=== PATIENT | female | born 1995 | race Caucasian/White ===

== ENCOUNTER 2017-02-10 09:28 | Emergency (ER) | payer BC ==
[~2017-02-10] VITALS: Ht 167.6 cm; Wt 63.0 kg
[2017-02-10 09:30] VITALS: BP 113/77
== END 2017-02-10 11:27 | disposition home or self-care (01) ==
LOC: ED 09:28
DX: S61.412A Laceration without foreign body of left hand, initial encounter (principal); J45.909 Unspecified asthma, uncomplicated; W25.XXXA Contact with sharp glass, initial encounter; Y93.89 Activity, other specified; Y99.8 Other external cause status; Y92.89 Other specified places as the place of occurrence of the external cause
CPT/HCPCS: J2001; Q0092